=== PATIENT | male | born 1935 | race Two or more races ===

== ENCOUNTER 2019-07-02 12:34 | Emergency (ER) | payer OTHER ==
[~2019-07-02] VITALS: Ht 180.3 cm; Wt 120.2 kg
[2019-07-02] MEDS ORDERED: TOPROL XL50 MG PO (13:10)
[2019-07-02] MEDS ORDERED: VASOTEC20 MG PO (13:11)
[2019-07-02] MEDS ORDERED: ASA81 MG PO (13:11)
== END 2019-07-02 14:43 | disposition home or self-care (01) ==
LOC: ER 12:34
DX: M48.07 Spinal stenosis, lumbosacral region (principal)